=== PATIENT | female | born 1950 | race Caucasian/White ===

== ENCOUNTER → 2024-06-15 13:27 | Outpatient (REF) | payer MEDICARE, OTHER, SELFPAY | LOC: WDC 13:27 | PROVIDERS: ATTENDING PHYSICIAN Obstetrics & Gynecology Gynecology; FAMILY PHYSICIAN Family Medicine | DX: Z12.31 Encounter for screening mammogram for malignant neoplasm of breast (principal) | CPT/HCPCS: 77063; 77067 ==

== ENCOUNTER 2024-06-27 13:17 | Emergency (ER) | payer MEDICARE, OTHER, SELFPAY ==
[2024-06-27 13:21] VITALS: BP 113/55
[2024-06-27 13:40] VITALS: BP 123/77
[2024-06-27 14:00] VITALS: BP 144/110
--- NOTE | 2024-06-27 14:19 | ED.GENMED ---
History of Present Illness
General
Chief Complaint: Fainting/Passed Out
Source: patient and spouse
Exam Limitations: none
Time Seen by Provider: 06/27/24 14:06
Nursing documentation reviewed up to this point in time: agreed with
History of Present Illness
History of Present Illness:
74-year-old female with past medical history as noted presents for evaluation after passing out. Patient says that she was in the shower and began to feel lightheaded and when she got out of the shower to dry off she passed out. She says that she
hit her face on the tile floor and also injured her right knee. Since then she has had pain in her upper lip where she sustained a laceration as well as pain in her right knee; she says she has had difficulty bearing weight on her right knee. She
says she has some soreness in her nose and had some transient epistaxis which resolved. She denies any significant headache. Denies any neck pain. Denies any back pain. Denies any chest or abdominal pain. She denies any pain in her upper
extremities. She says that she has had lightheadedness in the past but denies any prior history of syncope; she denies any known cardiac history but says that she is scheduled to see a reforestation worker in 2 weeks for evaluation of elevated heart rate
when she exercises. She denies being on any blood thinners. She does have notable history of a recent dental implant little over a month ago at [place] (both front teeth) as well as fever prior right knee replacement.
Past History
Past History
ED Past Medical History: Other
Social History
Tobacco: Non-smoker
Personal:
Review of Systems
Review of Systems
All Other Systems: ROS reviewed and negative except as documented in HPI and ROS
Constitutional: Denies fever or chills
EENT: Reports other (Lip laceration, nose pain, transient epistaxis); Denies sore throat
Respiratory: Denies cough or trouble breathing
Cardiac: Denies chest pain or palpitations
ABD/GI: Denies abdominal pain, nausea or vomiting
: Denies flank pain
Musculoskeletal: Reports joint pain (Right knee pain); Denies neck pain or back pain
Neurological: Denies dizzy, headache, weakness or numbness
Phy Exam
Physical Exam
Physical Exam:
General: Awake, alert, GCS 15; no acute distress
Head: Normocephalic, patient has laceration right upper inner lip approximately 2 cm linear
Nose: Minor mild tenderness along the nasal bridge, dried blood in left nare no active bleeding, no septal hematoma, no deformity or swelling
Eyes: Conjunctiva normal, EOMI, pupils equal round and reactive to light bilaterally
Throat: Airway intact, handling secretions, no loose teeth
Neck: Trachea midline, no cervical spine tenderness
Lungs: Clear to auscultation bilaterally, no wheezing, rales, rhonchi
Heart: Regular rate and rhythm, no murmurs, gallops, or rubs; no chest wall/rib tenderness
Abd: Soft, non distended, nontender
Back: No tenderness in the thoracic or lumbar spine or signs of trauma to the back or flank
Neuro: Cranial nerves grossly intact, speech fluid, no gross motor or sensory deficits
Skin: Upper inner lip laceration
Extremities: Patient has right knee effusion and tenderness along bilateral joint line and with manipulation of patella on the right; she can only flex the right knee to about 30 degrees before she has significant pain; she has no pain on
internal/external rotation of the right hip, no edema in the right lower extremity, good pulses in the right lower extremity; rest of her extremities appear atraumatic and she is moving them through comfortable range of motion
Scores
Heart Failure Risk
Heart Failure Risk Score: Not Applicable
Heart Score for Chest Pain Patients
STEMI patient?: Not applicable
Withdrawal Assessment of Alcohol
Withdrawal Assessment Completed?: Not applicable
Course
Orders/Labs/Results
Orders:
Orders
06/27/24 13:27
EKG [Electrocardiogram (*1)] Urgent
Reason for Study: Syncope
06/27/24 13:28
EKG- Treatment ONCE
06/27/24 14:18
CR Knee- Right 4 Or More View* Urgent
Comment:
Reason For Exam: right knee pain, effusion s/p fall
06/27/24 14:19
CT Facial Bones W/o Iv Contras Urgent
Comment:
Reason For Exam: nose, maxillary pain s/p fall and facial trauma
CT Head W/o Iv Contrast Urgent
Comment:
Reason For Exam: syncope with frontal trauma
06/27/24 14:22
Complete Blood Count/With Diff Urgent
Comprehensive Metabolic Panel Urgent
06/27/24 16:52
Pt Eval And Treat Urgent
Activity Level: Ambulate
06/27/24 16:53
[place] Wrap Right-Treatment ONCE
Comment: knee
Abnormal Lab Results
06/27/24
14:22
MCH 31.9 H pg
(27.0-31.0)
Absolute Neuts (auto) 7.6 H 10^3/uL
(1.4-6.5)
Absolute Monos (auto) 0.7 H 10^3/uL
(0.1-0.6)
Lymphocytes % 18.7 L %
(20.5-51.1)
Glucose 103 H mg/dl
(70-99)
Total Protein 6.0 L g/dl
(6.3-8.2)
06/27/24 14:22
06/27/24 14:22
Vital Signs
Initial and Last Documented VS:
Initial Vital Signs
Temp Pulse Resp BP Pulse Ox
36.6 C 58 16 113/55 100
06/27/24 13:21 06/27/24 13:21 06/27/24 13:21 06/27/24 13:21 06/27/24 13:21
Last Documented Vital Signs
Temp Pulse Resp BP Pulse Ox
36.6 C 62 26 144/110 100
06/27/24 13:21 06/27/24 17:00 06/27/24 17:00 06/27/24 14:00 06/27/24 14:15
Procedures
Laceration Closure
Right Upper Lip:
Status of Wound: clean
Size of Wound in cm: 2
Description of Wound Edges: sharp
Preparation: cleaned with saline
Anesthesia: 1% Lidocaine
Revision/Debridement: routine- no revision
Type of Closure: single layer closure
Skin Closure Material: 5-0 vicryl
Number of sutures: 3
MDM/Problems Addressed
Differential Diagnosis Includes:
Syncope: Vasovagal syncope, orthostatic syncope, symptomatic anemia, dehydration, dysrhythmia
Right knee pain: Contusion, fracture, dislocation, internal derangement/ligamentous injury
MDM/Problems Addressed:
74-year-old female presents for evaluation after syncopal episode after getting out of the shower; no prodrome, denies chest pain, shortness of breath, palpitations. She fell and injured her right knee also struck her face on the ground and has a
laceration to her lip and some soreness in the nose. She is not on blood thinners. Vital signs are normal. Exam as above. Will check basic labs including a CBC and a CMP. EKG reviewed shows sinus rhythm with heart rate 49 (she says she usually
runs in the 50s), first-degree AV block, no Brugada, normal QTc, no delta wave. Will check CT head and facial bones. Check an x-ray of the right knee. Reassess after the above.
Labs reviewed: CBC unremarkable, CMP no clinically significant abnormalities. CT head negative for any acute pathology. CT facial bones shows minor nasal fracture�will cover with prophylactic antibiotic. X-ray of the knee no acute fracture�could
be a sprain versus contusion versus internal derangement--will place in knee brace, trial ambulation with assistance here. May need short-term rehab if unable to ambulate. Upper lip laceration repaired as documented in procedure note with
absorbable sutures. From a syncope perspective no clear negation for admission to the medical campos, likely stable for discharge but may be disposition issue due to ambulation issues secondary to knee injury. Will reassess after above.
Patient ambulated well with a walker here, stable for discharge, follow-up with orthopedics as an outpatient as well as ENT. She also has cardiology follow-up scheduled as mentioned above which she will keep. Spoke about return precautions all
questions answered.
*Radiology
Radiology exam reviewed: preliminary read by ED provider and radiology read reviewed
*Pulse Oximetry
Patient hypoxic: no
*EKG
Interpreted by ED Provider?: Yes
Heart Rate: 49
Rate: bradycardiac
Rhythm: sinus
[place]: normal axis
Interval: first degree heart block
QRS Pattern: normal QRS
Ischemia: no ischemia
*Critical Care Note
Total Time (30-74mins, 75-104mins- exclusive of procedures): Not Applicable
Data Reviewed
Review of Other/Old Records Reveals: Labs and Records
Source: patient, records and spouse
ED Attending Note
-
Portions of this chart may have been created with voice recognition software.� Occasional wrong word or��sound alike� substitutions may have occurred due to the inherent limitations of voice recognition software.
Discharge Plan
Departure
Patient Disposition: Home (Routine Discharge)
Date of Disposition: 06/27/24
Time of Disposition: 17:42
Patient with high blood pressure during this ER visit?: Yes
Discharge Problem:
Syncope, Fracture, nasal, Laceration of lip
Instructions: Syncope (Fainting) (DC), Laceration Repair With Stitches ED, Nose Fracture ED
Prescriptions:
New
doxycycline hyclate 100 mg tablet
100 mg PO BID 5 Days Qty: 10 0RF
No Action
fish oil-dha-epa 1,200-144-216 mg Capsule
1 cap PO BID
ascorbic acid (vitamin C) [Vitamin C] 1,000 mg Tablet
1 g PO DAILY
zinc acetate 50 mg (zinc) Capsule
50 mg PO DAILY
tretinoin 0.025 % Cream
1 applic TOPICAL Q48H
meloxicam [Mobic] 7.5 mg Tablet
7.5 mg PO DAILY
gabapentin 300 mg Capsule
300 mg PO HS
clobetasol 0.05 % Ointment
1 applic TOPICAL MOTH
estradiol [Estrace] 0.01 % (0.1 mg/gram) Cream
1 appful vaginal SUTUWEFRSA
MSM Glucosamine Complex 500-333.3 mg Tablet
1 tab PO BID
rosuvastatin [Crestor] 5 mg Tablet
5 mg PO MOTUWEFRSA
cholecalciferol (vitamin D3) [Vitamin D3] 25 mcg (1,000 unit) Tablet,Chewable
25 mcg PO DAILY
turmeric root extract 500 mg Capsule
500 mg PO BID
tavaborole [Kerydin] 5 % Solution With Applicator
1 applic TOPICAL .2-3X WEEK
magnesium citrate 125 mg Capsule
250 mg PO DAILY
Licorice Root
400 mg PO DAILY
Probiotic
1 cap PO DAILY
Routin
250 mg PO DAILY
calcium 315 MG
315 mg PO BID
Devil's Claw
480 mg PO BID
Referrals:
Kirti Monterroso MD [Family Provider] - Follow up in 5-7 days
Boni Bajwa MD [Active] - Call in 1-3 days for appt (ENT)
Tyrone Rodarte MD [Active] - Call in 1-3 days for appt (Orthopedics)
Activity Restrictions/Additional Instructions:
Thank you for visiting the Emergency Department at [facility].
1. Please schedule a follow up appointment as directed. Call first thing tomorrow morning to make an appointment.
2. If indicated, please take your medications as instructed and indicated on discharge paperwork.
3. If any of your symptoms do not improve, or persist, or become more severe within 6-12 hours, please return to the emergency department for further care.
4. Please return to the emergency department if you develop a headache, neck pain/stiffness, fever greater than 100.4F, chest pain, shortness of breath, persistent nausea, vomiting, slurred speech, difficulty walking, numbness/tingling, weakness,
signs of infection or any other symptoms that are worrisome to you.
Please call [phone] if you have any questions.
Interventions
Interventions:
*Risk Screen - Suicide Last Done: 06/27/24 13:21
*General Assessment Last Done: 06/27/24 13:21
*Neglect/Abuse Screening Last Done: 06/27/24 13:21
ED- Cardiac Assessment Last Done: 06/27/24 16:44
ED- Neurological Assessment Last Done: 06/27/24 16:44
Discharge Date and Time
Print Language: YI
[2024-06-27 14:44] LABS: % Basophils 0.6 % (0-2); % Eosinophils 0.9 % (0-6); % Immature Granulocytes 0.3 % (0-0.5); % Lymphocytes 18.7 % (20.5-51.1); % Monocytes 6.4 % (1.7-9.3); % Neutrophils 73.1 % (42.2-75.2); Absolute Basophils 0.1 10^3/uL (0-0.2); Absolute Eosinophils 0.1 10^3/uL (0-0.7); Absolute Lymphocytes 1.9 10^3/uL (1.2-3.4); Absolute Monocytes 0.7 10^3/uL (0.1-0.6); Absolute Neutrophils 7.6 10^3/uL (1.4-6.5); Hematocrit 40.7 % (37.0-47.0); Hemoglobin 13.9 g/dL (12.0-16.0); Mean Corp Hgb Conc. 34.2 g/dL (33.0-37.0); Mean Corpuscular Hgb 31.9 pg (27.0-31.0); Mean Corpuscular Volume 93.3 fL (81.0-99.0); Mean Platelet Volume 9.1 fL (7.4-10.4); Nucleated Red Blood Cells % 0 %; Platelet Count 223 10^3/uL (130-400); Red Blood Cell Count 4.36 10^6/uL (4.20-5.40); Red Cell Dist. Width 13.5 % (11.5-14.5); White Blood Cell Count 10.4 10^3/uL (4.8-10.8)
[2024-06-27 15:03] LABS: ALT (SGPT) 23 U/L (0-35); AST (SGOT) 29 U/L (14-36); Alkaline Phosphatase 67 U/L (38-126); Blood Urea Nitrogen 12 mg/dl (7-17); Calcium 9.6 mg/dl (8.4-10.2); Carbon Dioxide 27 mmol/L (22-30); Chloride 107 mmol/L (98-107); Glucose 103 mg/dl (70-99); Potassium 4.2 mmol/L (3.5-5.1); Sodium 139 mmol/L (135-145); Total Bilirubin 0.7 mg/dl (0.2-1.3); eGFR > 60.00
== END 2024-06-27 18:07 | disposition home or self-care (01) ==
LOC: EMR 13:17
PROVIDERS: EMERGENCY PHYSICIAN Emergency Medicine; FAMILY PHYSICIAN Family Medicine
DX: R55 Syncope and collapse (principal); S02.2XXA Fracture of nasal bones, initial encounter for closed fracture; S01.511A Laceration without foreign body of lip, initial encounter; S89.91XA Unspecified injury of right lower leg, initial encounter; M25.461 Effusion, right knee; W18.39XA Other fall on same level, initial encounter; Y93.E8 Activity, other personal hygiene; R03.0 Elevated blood-pressure reading, without diagnosis of hypertension; I44.0 Atrioventricular block, first degree; E78.5 Hyperlipidemia, unspecified; M19.90 Unspecified osteoarthritis, unspecified site; Z96.651 Presence of right artificial knee joint; Z85.828 Personal history of other malignant neoplasm of skin; Z87.891 Personal history of nicotine dependence; Z91.041 Radiographic dye allergy status; Z91.040 Latex allergy status; Z88.5 Allergy status to narcotic agent; Z88.0 Allergy status to penicillin; Z88.8 Allergy status to other drugs, medicaments and biological substances; Z91.048 Other nonmedicinal substance allergy status
CPT/HCPCS: 99285; 12011; 70450; 70486; 73564; 80053; 85025; 93005

== ENCOUNTER → 2024-10-19 13:04 | Outpatient (REF) | payer MEDICARE, OTHER, SELFPAY | LOC: WDC 13:04 | PROVIDERS: ATTENDING PHYSICIAN Obstetrics & Gynecology Gynecology; FAMILY PHYSICIAN Family Medicine | DX: R92.30 Dense breasts, unspecified (principal) | CPT/HCPCS: 76641 ==

== ENCOUNTER → 2025-06-14 13:07 | Outpatient (REF) | payer MEDICARE, OTHER, SELFPAY | LOC: WDC 13:07 | PROVIDERS: ATTENDING PHYSICIAN Obstetrics & Gynecology Gynecology; FAMILY PHYSICIAN Family Medicine | DX: Z12.31 Encounter for screening mammogram for malignant neoplasm of breast (principal); M81.0 Age-related osteoporosis without current pathological fracture | CPT/HCPCS: 77063; 77067; 77080 ==

== ENCOUNTER → 2025-09-10 14:47 | Outpatient (REF) | payer MEDICARE, OTHER, SELFPAY | LOC: RCS 14:47 | PROVIDERS: ATTENDING PHYSICIAN Family Medicine | DX: R53.83 Other fatigue (principal); Z86.16 Personal history of COVID-19 | CPT/HCPCS: 93306 ==

== ENCOUNTER → 2025-09-13 09:44 | Outpatient (REF) | payer MEDICARE, OTHER, SELFPAY | LOC: WDC 09:44 | PROVIDERS: ATTENDING PHYSICIAN Obstetrics & Gynecology Gynecology; FAMILY PHYSICIAN Family Medicine | DX: R92.30 Dense breasts, unspecified (principal); R18.8 Other ascites | CPT/HCPCS: 76641; 76830; 76856 ==

== ENCOUNTER 2025-09-23 06:27 | Day surgery (SDC) | payer MEDICARE, OTHER, SELFPAY | END 2025-09-23 11:14 | disposition home or self-care (01) | LOC: GI 06:27 | PROVIDERS: ATTENDING PHYSICIAN Internal Medicine; FAMILY PHYSICIAN Family Medicine | DX: Z12.11 Encounter for screening for malignant neoplasm of colon (principal); K64.9 Unspecified hemorrhoids; K57.30 Diverticulosis of large intestine without perforation or abscess without bleeding; D12.0 Benign neoplasm of cecum; D12.2 Benign neoplasm of ascending colon; Z86.0101 Personal history of adenomatous and serrated colon polyps | CPT/HCPCS: 45385; 88305 ==

== ENCOUNTER → 2025-09-27 14:15 | Outpatient (REF) | payer MEDICARE, OTHER, SELFPAY | LOC: RCS 14:15 | PROVIDERS: ATTENDING PHYSICIAN Nurse Practitioner; FAMILY PHYSICIAN Family Medicine | DX: R06.09 Other forms of dyspnea (principal) | CPT/HCPCS: 93017 ==